=== PATIENT | male | born 1960 | race Caucasian/White ===

== ENCOUNTER 2022-07-12 17:34 | Emergency (ER) | payer OTHER ==
[~2022-07-12] VITALS: Ht 154.9 cm; Wt 97.1 kg
[2022-07-12 17:40] VITALS: BP 133/92
[2022-07-12] MEDS ORDERED: diphenhydrAMINE 50 MG/ML VIAL IM ONE (18:00)
[2022-07-12] MEDS ORDERED: FAMOTIDINE 20 MG TAB PO ONE (18:00)
[2022-07-12] MEDS ORDERED: methylPREDNISolone SS 125 MG/2 ML VIAL IM ONE (18:00)
--- NOTE | 2022-07-12 19:51 | NUR ---
pt AAOx4, GCS15, pt denies any pain and feels ready to go home. Denies any pain at this time. pt shows no s/s of distress. pt ambulatory to the bathroom with a steady gait.
[2022-07-12] MEDS ORDERED: EPIN1KIT31 IM (20:03)
[2022-07-12] MEDS ORDERED: DIPH25TA53 PO (20:03)
[2022-07-12 20:19] VITALS: BP 143/90
--- NOTE | 2022-07-12 20:19 | NUR ---
Patient discharged with v/s stable. Written and verbal after care instructions given and explained. Patient alert, oriented and verbalized understanding of instructions. Ambulatory with steady gait. All questions addressed prior to discharge. ID band removed. Patient advised to follow up with PMD. Rx of Benadryl and Epipen given. Patient educated on indication of medication including possible reaction and side effects. Opportunity to ask questions provided and answered.
== END 2022-07-12 20:19 | disposition home or self-care (01) ==
LOC: MED 17:34
DX: L50.9 Urticaria, unspecified (principal); R19.7 Diarrhea, unspecified; T78.49XA Other allergy, initial encounter; I25.10 Atherosclerotic heart disease of native coronary artery without angina pectoris; E11.9 Type 2 diabetes mellitus without complications; I10 Essential (primary) hypertension; Z79.4 Long term (current) use of insulin; Z79.899 Other long term (current) drug therapy; X58.XXXA Exposure to other specified factors, initial encounter
CPT/HCPCS: 96372; 99284; J1200; J2930